=== PATIENT | male | born 1940 | race Caucasian/White ===

== ENCOUNTER 2017-11-22 07:30 | Inpatient (IN) ==
[2017-12-13] MEDS ORDERED: LIDOCAINE W/ SODIUM BICARB 0.5 ML SYR SUBD ONE (06:00)
[2017-12-13] MEDS ORDERED: Lactated Ringers 1,000 ML PRIMARY IV SCH ×2 (06:00→10:45)
[2017-12-13] MEDS ORDERED: ceFAZolin Inj 2gm (Premix) 2 GM/50 ML BAG IV ONE (06:00)
[2017-12-13] MEDS ORDERED: Nasal Sanitizer POPSWAB ampule 3 AMP (Nozin) PREOP DOSE ENOS SCH (06:00)
[2017-12-13] MEDS ORDERED: LIDOCAINE W/ SODIUM BICARB 0.5 ML SYR ONE (06:05)
[2017-12-13] MEDS ORDERED: ceFAZolin Inj 2gm (Premix) 0 GM/0 ML BAG IV ONE (06:05)
[2017-12-13] MEDS ORDERED: Lactated Ringers 1,000 ML PRIMARY IV ONE ×2 (06:05→11:39)
[2017-12-13] MEDS ORDERED: fentaNYL Inj 250 MCG/5 ML VIAL ONE (07:00)
[2017-12-13] MEDS ORDERED: MIDAZOLAM 5 MG/1 ML ONE (07:00)
[2017-12-13] MEDS ORDERED: KETAMINE 100 MG/1 ML - 5 ML ONE (07:00)
[2017-12-13] MEDS ORDERED: BUPivacaine Inj 0.25% PF - 10ml vial ONE (07:02)
[2017-12-13] MEDS ORDERED: PROPOFOL 10 MG/1 ML (200 MG/20 ML) VIAL IV ONE (07:03)
[2017-12-13] MEDS ORDERED: BACITRACIN 50,000 UNIT VIAL IRRIG ONE (07:03)
[2017-12-13] MEDS ORDERED: BUPivacaine Liposome/PF (Exparel) Inj 20ml vial INFIL ONE (07:03)
[2017-12-13] MEDS ORDERED: Sodium Chloride 0.9% vial 40 ML ONE (07:03)
[2017-12-13] MEDS ORDERED: ROCURONIUM 10 MG/1 ML - 5 ML VIAL IVP ONE (07:04)
[2017-12-13] MEDS ORDERED: TRANEXAMIC ACID 1,000 MG / 10 ML VIAL ONE ×2 (07:05→09:25)
[2017-12-13] MEDS ORDERED: LIDOCAINE MPF 2% - 5 ML (20 MG/1 ML) ONE (07:06)
[2017-12-13] MEDS ORDERED: Sodium Chloride 0.9% vial 10 ML ONE ×2 (07:06→08:40)
[2017-12-13] MEDS ORDERED: DEXAMETHASONE PF 10 MG/1 ML VIAL ONE (07:08)
[2017-12-13] MEDS ORDERED: BUPIVACAINE 0.5% W/EPI MPF -30 ML VIAL IV ONE (07:10)
[2017-12-13] MEDS ORDERED: Ropivacaine 0.2% VIAL 20 ML ONE (07:10)
[2017-12-13] MEDS ORDERED: ceFAZolin Inj 3 GM in Sodium Chloride 0.9% 100 ML IV ONE (07:15)
--- NOTE | 2017-12-13 07:48 | CRNA.PROCE ---
Nerve Block Documentation - - Safety Measures: Time Out Taken, Site Verified - - Type of Nerve Block Used: Right Interscalene Block (Analgesia for post Reverse TSA) Position for Nerve Block: Supine Moniters Used During Block: EKG, SPO2, NIBP Oxygen Supplemented: Yes Sedation Used - Enter Amount in Comment Field [ANES.SEDAT]: Midazolam (mg): Yes (2.5), Fentanyl (mcg): Yes (50) Skin Prep Used: ChloroPrep (Twice) Draped: No Technique: Nerve Stimulator Nerve Block Needle Used: [employer] 50 mm Stimulation Hz: 1 Stimulation Staring mA: 1 Stimulation Ending mA: 1.8 Local Anesthetic - Enter Amt in Comment Field [ANES.LOCNB]: 0.5 % Bupivicaine with Epinephrine 1:200,000 (mL): Yes (15 ml), 0.2 % Ropivacaine (mL): Yes (15 ml ) Additives to Nerve Blocks: Dexamethasone (mg): Yes (10) - - PreOp Block : Time In: 07:30 PreOp Block : Time Out: 07:40 Anesthesia Time - Other Weight: 123.604 kg Height: 5 ft 6 in Body Mass Index (BMI): 43.9
--- NOTE | 2017-12-13 07:49 | CRNA.PROGR ---
Anesthesia Recovery Phase I - Post Anesthesia Evaluation Patient's Condition on Arrival in Phase I: Fair Patient's Condition on Arrival in Phase II: Stable Pain Level: 0 (copd and the pain block my biggest concerns post op. some hoarseness. some cough. needs pulmonary toilet. probably cpap or bipap while sleeping.)
--- NOTE | 2017-12-13 07:49 | CRNA.PROGR ---
Post Anesthesia Phase II - Post Anesthesia Phase II Patient Stable and Discharged To: Med/Surg Care Assumed By Surgeon: Fabricio Jaimes MD Temperature: 97.9 F Pulse Rate: 70 Respiratory Rate: 23 Blood Pressure: 143/82 Pulse Ox: 92 Total Nelly Score at Discharge: 9 Post Anesthesia Discharge Criteria Met: Yes
--- NOTE | 2017-12-13 07:49 | CRNA.PROGR ---
Anesthesia Time - Procedure/Recovery Time Start Date: 12/13/17 End Date: 12/13/17 Anesthesia : Time In: 08:04 Anesthesia : Time Out: 12:09 Anesthesia : Total Time: 245 - Block Time PreOp Block : Time In: 07:30 PreOp Block : Time Out: 07:40 - Total Anesthesia Time Total Anesthesia Time (minutes): 245 - Other Weight: 123.604 kg Height: 5 ft 6 in Body Mass Index (BMI): 43.9 Physical Status: P3 (Obesity, HTN, COPD, HEMANT) Anesthesia Type: General Anesthesia : ET
[2017-12-13] MEDS ORDERED: PHENYLEPHRINE 10,000 MCG/1 ML VIAL ONE (08:39)
[2017-12-13] MEDS ORDERED: Hetastarch 6% + NS 500 ML IV ONE (09:11)
[2017-12-13] MEDS ORDERED: fentaNYL Inj 100 MCG/2 ML VIAL IVP PRN (10:34)
[2017-12-13] MEDS ORDERED: LIDOCAINE W/ SODIUM BICARB 0.5 ML SYR SUBD PRN (10:34)
[2017-12-13] MEDS ORDERED: HYDROmorphone 2 MG/1 ML IVP PRN (10:34)
[2017-12-13] MEDS ORDERED: ONDANSETRON 4 MG/2 ML VIAL IVP PRN ×2 (10:34→13:26)
[2017-12-13] MEDS ORDERED: ATROPINE SULFATE 0.4 MG/1 ML VIAL IVP PRN (10:34)
[2017-12-13] MEDS ORDERED: Ondansetron ODT Tab 8 MG TAB PO PRN (10:34)
[2017-12-13] MEDS ORDERED: IPRATROPIUM/ALBUTEROL SULFATE 3 ML NEB NEB PRN (10:35)
--- NOTE | 2017-12-13 12:21 | ORTHO.OP ---
- - -: See Dictated Operative Report
[2017-12-13 12:23] LABS: Hemoglobin [HGB] 14.2 g/dL (14.0-18.0)
[2017-12-13] MEDS ORDERED: LIDOCAINE HCL 2 % 10 ML JELLY URO-JECT TOPICAL PRN (13:26)
[2017-12-13] MEDS ORDERED: KETOROLAC 15 MG/1 ML VIAL IVP PRN (13:26)
[2017-12-13] MEDS ORDERED: MORPHINE SULFATE 2 MG/1 ML IVP PRN (13:26)
[2017-12-13] MEDS ORDERED: Fleet Enema 133ml RECTAL PRN (13:26)
[2017-12-13] MEDS ORDERED: MAGNESIUM 400 MG/5 ML - 30 ML (MILK OF MAGNESIA) PO PRN (13:26)
[2017-12-13] MEDS ORDERED: MAGNESIUM CITRATE 296 ML SOLUTION PO PRN (13:26)
[2017-12-13] MEDS ORDERED: DOCUSATE 100 MG CAPSULE PO PRN (13:26)
[2017-12-13] MEDS ORDERED: BISACODYL 5 MG TABLET PO PRN (13:26)
--- NOTE | 2017-12-13 13:41 | DI ---
XR SHOULDER MIN 2VW 12/13/2017 12:01 PM History: [facility] [place] DI ^PO ^AP and trans scap Y Comparison: None. Findings: AP and scapular Y views of the right shoulder demonstrate postsurgical changes consistent w ith right shoulder hemiarthroplasty. The superior surgical screw projects beyond cortical bone on the scapular Y view. There are degenerative changes of the acromioclavicular joint with inferior spur fo rmation. Patchy opacities in the right lung base are most likely atelectasis in the absence of additi onal clinical findings. The visualized soft tissues are otherwise unremarkable. Impression: Status post right shoulder hemiarthroplasty. Correlate with desired surgical outcome.
[2017-12-13] MEDS ORDERED: MORPHINE SULFATE 4 MG/1 ML IV PRN (13:43)
[2017-12-13] MEDS ORDERED: MORPHINE SULFATE 2 MG/1 ML IV PRN (13:43)
[2017-12-13] MEDS ORDERED: MORPHINE SULFATE 10 MG/1 ML IV PRN (13:43)
--- NOTE | 2017-12-13 13:53 | CONSULT ---
Consult Note - Consult Consult Date: 12/13/17 Reason for Consult: PostOp Consulation : Ortho Requesting Physician: Dr. Jaimes Primary Care Provider: NISHA PUENTES - History of Present Illness History of Present Illness: This is a 77 years old male with medical history significant for history of hypertension, hypothyroidism, hyperlipidemia, sleep apnea and restless leg syndrome also history of right shoulder osteoarthritis with came into the hospital to have reverse total shoulder replacement and was done by Dr. Jaimes today. The hospitalist service were consulted for management of medical issues. Apart from sore throat he is denying other symptoms. No nausea, no shortness of breath and no chest pain. Past Medical History Medical History: 1. Early COPD. 2. Obesity. 3. Hypertension. 4. Sleep apnea, he's not been using his CPAP regularly for 6 months because of his right shoulder pain. 5. Hypothyroidism. 6. History of restless leg syndrome. 7. Osteoarthritis of right shoulder Surgical History: 1. History of knee replacement. 2. History of hemorrhoidectomy. 3. History of carpal tunnel release Family History: Reviewed an Not Pertinent Past Social History: He used to smoke but not anymore, doesn't drink no drugs. Lives in [place] with his . Tobacco Use: Former Smoker In the Past 12 Months, Have Used or Abuse Any of the Following Substance: None Alcohol Use: None Review of Systems - Review of Systems All Systems: Reviewed & No Additional Complaints Except as Stated Medication / Allergies Home Medications: Home Medications 3 Medication Instructions Recorded Confirmed Type Acetaminophen [Tylenol Extra 500 mg PO Q8H PRN PRN 12/07/17 12/07/17 History Strength] Ascorbic Acid [Vitamin C] 1,000 mg PO DAILY 12/07/17 12/07/17 History Aspirin [Aspir 81] 81 mg PO DAILY 12/07/17 12/13/17 History Benazepril HCl [Lotensin] 10 mg PO DAILY 12/07/17 12/07/17 History Cholecalciferol (Vitamin D3) 2,000 unit PO DAILY 12/07/17 12/07/17 History [Vitamin D3] Fiber [Fiber Diet] 2 ea PO DAILY 12/07/17 12/07/17 History Furosemide [Lasix] 80 mg PO DAILY PRN 12/07/17 12/13/17 History Levothyroxine Sodium 188 mcg PO DAILY 12/07/17 12/13/17 History Magnesium Oxide [Magnesium] 400 mg PO DAILY 12/07/17 12/07/17 History Piroxicam 10 mg PO DAILY 12/07/17 12/07/17 History Potassium 198 mg PO BID 12/07/17 12/13/17 History Pravastatin Sodium 40 mg PO DAILY 12/07/17 12/07/17 History Vitamin E 800 unit PO DAILY 12/07/17 12/07/17 History Zinc Gluconate [Zinc] 30 mg PO DAILY 12/07/17 12/07/17 History Fluticasone Nasal [place] 0.05% 1 gm .ROUTE DAILY 12/13/17 12/13/17 History [Flonase Nasal [place] 0.05%] Fluticasone/Salmeterol [Advair 1 INH DAILY 12/13/17 History 250-50 Diskus] Hydrocodone/Acetaminophen 1 - 2 ea PO Q4-6H PRN #60 tab 12/13/17 Rx [Hydrocodon-Acetaminoph 7.5-325] Piroxicam 10 mg PO BID 12/13/17 12/13/17 History Ropinirole HCl 1 mg PO 1200 12/13/17 12/13/17 History Ropinirole HCl [Requip] 1 mg PO QAM 12/13/17 12/13/17 History Ropinirole HCl [Requip] 3 mg PO QHS 12/13/17 12/13/17 History Allergies/Adverse Reactions: Allergies 3 Allergy/AdvReac Type Severity Reaction Status Date / Time adhesive tape Allergy NOT Verified 12/13/17 06:27 APPLICABLE Exam - Vitals Vital Signs: Vital Signs Temperature 97.1 F Pulse Rate 79 Respiratory Rate 20 Blood Pressure 120/93 Pulse Ox 94 Oxygen Flow Rate 4 Oxygen Delivery Method Room Air Height 5 ft 6 in Weight 272 lb 8 oz - General General Appearance: No Acute Distress, Cooperative, Obese - Head Head Exam: Normal Inspection - Eye Eye Exam: POSITIVE: Normal Appearance - ENT ENT Exam: POSITIVE: Normal Exam - Neck Neck Exam: Normal Inspection - Respiratory Respiratory Exam: POSITIVE: Clear to Auscultation - Bilaterally - Cardiovascular Cardiovascular Exam: POSITIVE: RRR - GI/Abdominal GI/Abdominal Exam: POSITIVE: Normal Bowel Sounds, Non Tender, Non Distended, Soft, No Organomegaly - Rectal Rectal Exam: POSITIVE: Deferred - External Exam: POSITIVE: Deferred - Extremities Additional Extremities Exam Details: SCD boots applied. Right shoulder in a brace - Neurological Neurological Exam: POSITIVE: Alert, Oriented x 3, CN II-XII Intact, No Facial Droop Additional Neurological Exam Details: Hoarse voice - Psychiatric Psychiatric Exam: POSITIVE: Normal Affect - Integumentary Integumentary Exam: POSITIVE: Normal Color Results - Labs CBC and BMP: 12/13/17 12:18 Assessment and Plan - Patient Problems (1) Status post shoulder replacement Current Visit: Yes Status: Acute Comment: Management per Dr. Jaimes he wrote for pain medications and PT and OT consult Code(s): Z96.619 - Presence of unspecified artificial shoulder joint (2) Hypertension Current Visit: Yes Status: Acute Comment: He is on Lotensin will see his blood pressure tomorrow and see if we need to hold it or not. Code(s): I10 - Essential (primary) hypertension (3) Hypothyroidism Current Visit: Yes Status: Acute Comment: Same med Code(s): E03.9 - Hypothyroidism, unspecified (4) Hyperlipidemia Current Visit: Yes Status: Acute Comment: Same med Code(s): E78.5 - Hyperlipidemia, unspecified (5) COPD (chronic obstructive pulmonary disease) Current Visit: Yes Status: Acute Comment: Continue Advair Code(s): J44.9 - Chronic obstructive pulmonary disease, unspecified (6) Restless legs syndrome Current Visit: Yes Status: Acute Comment: Continue requip Code(s): G25.81 - Restless legs syndrome
[2017-12-13] MEDS: ceFAZolin Inj 2gm (Premix) 2 GM/50 ML BAG IV SCH (16:41)
[2017-12-13] MEDS: HYDROcodone-APAP 7.5 MG-325 MG TABLET PO PRN ×2 (16:50→20:53)
[2017-12-13] MEDS: FLUTICASONE INH SCH (18:25)
[2017-12-13] MEDS: SALMETEROL INH SCH (18:25)
[2017-12-13] MEDS ORDERED: FLUTICASONE/SALMETEROL 250/50 UD INHALER INH SCH (19:00)
[2017-12-13 20:05] VITALS: RESP 20
[2017-12-13] MEDS: ENOXAPARIN SODIUM 30 MG/0.3 ML SYRINGE SUBCUT SCH (20:52)
[2017-12-13] MEDS: FLUTICASONE 0.05% ENOS SCH (20:52)
[2017-12-13] MEDS ORDERED: ROPINIROLE 3 MG PO SCH (21:00)
[2017-12-13] MEDS ORDERED: Pravastatin Tab 40 MG TAB PO SCH (21:00)
[2017-12-14] MEDS: ceFAZolin Inj 2gm (Premix) 2 GM/50 ML BAG IV SCH (00:15)
[2017-12-14] MEDS: HYDROcodone-APAP 7.5 MG-325 MG TABLET PO PRN ×3 (02:11→11:25)
[2017-12-14 04:39] LABS: Hematocrit [HCT] 36.7 % (42.0-52.0); MEAN CORPUSCULAR HEMOGLOBIN 31.7 PG (27-31); MEAN CORPUSCULAR HGB CONC 32.7 g/dL (33-37); MEAN CORPUSCULAR VOLUME 96.8 FL (80-90); MEAN PLATELET VOLUME 9.7 FL (7.4-12.2); RED BLOOD COUNT 3.79 10^6/uL (4.70-6.10)
[2017-12-14 05:09] LABS: BLOOD UREA NITROGEN 29 mg/dL (7-22); BUN/CREATININE RATIO 26.36 (6-20)
[2017-12-14] MEDS: FLUTICASONE INH SCH (06:40)
[2017-12-14] MEDS: SALMETEROL INH SCH (06:40)
[2017-12-14] MEDS: FLUTICASONE 0.05% ENOS SCH (06:49)
--- NOTE | 2017-12-14 06:53 | CRNA.PROGR ---
Anesthesia Note - Progress Notes Anesthesia Progress Note: Awake,sitting up in bed. Cheerful, alert, no longer hoarse. Urine output still brisk via schultz catheter. Comfortable. States thumb and index finger Right hand still somewhat numb. Denies nausea. Laboratory Results 12/13/17 12/14/17 12/14/17 Range/Units 12: 04:10 04:10 WBC 8.73 (4.8-10.8) 10^3/uL RBC 3.79 L (4.70-6.10) 10^6/uL Hgb 14.2 12.0 L (14.0-18.0) g/dL Hct 43.0 36.7 L (42.0-52.0) % MCV 96.8 H (80-90) FL MCH 31.7 H (27-31) PG MCHC 32.7 L (33-37) g/dL RDW Std Deviation 47.5 (39-50) fL RDW Coeff of [place]leigh 13.8 (11.5-14.5) % Plt Count 290 (140-350) 10*3/uL MPV 9.7 (7.4-12.2) FL Sodium 135 (135-145) meq/L Potassium 4.8 (3.8-5.2) meq/L Chloride 102 (98-112) meq/L Carbon Dioxide 27 (23-33) meq/L Anion Gap 6 (5-20) BUN 29 H (7-22) mg/dL Creatinine 1.1 (0.70-1.50) mg/dL BUN/Creatinine Ratio 26.36 H (6-20) Glucose 156 H (78-110) mg/dL Calculated Osmolality 288.0 (267-292) mOsm/kg Calcium 8.5 L (8.7-10.7) mg/dL Vital Signs - Last Taken Temperature 96.9 F 12/14/17 04:37 Pulse Rate 82 12/14/17 06:47 Respiratory Rate 20 12/14/17 04:37 Blood Pressure 105/70 12/14/17 04:37 Pulse Ox 92 12/14/17 04:37 No apparent anesthetic difficulties.
--- NOTE | 2017-12-14 07:36 | ORTHO.PROG ---
Last Taken Vital Signs: Vital Signs - Last Taken Temperature 96.9 F 12/14/17 04:37 Pulse Rate 82 12/14/17 06:47 Respiratory Rate 20 12/14/17 04:37 Blood Pressure 105/70 12/14/17 04:37 Pulse Ox 92 12/14/17 04:37 Subjective: comfortablr, no CP SOB Objective: Laboratory Results 12/13/17 12/14/17 12/14/17 Range/Units 12:18 04:10 04:10 WBC 8.73 (4.8-10.8) 10^3/uL RBC 3.79 L (4.70-6.10) 10^6/uL Hgb 14.2 12.0 L (14.0-18.0) g/dL Hct 43.0 36.7 L (42.0-52.0) % MCV 96.8 H (80-90) FL MCH 31.7 H (27-31) PG MCHC 32.7 L (33-37) g/dL RDW Std Deviation 47.5 (39-50) fL RDW Coeff of Ashleigh 13.8 (11.5-14.5) % Plt Count 290 (140-350) 10*3/uL MPV 9.7 (7.4-12.2) FL Sodium 135 (135-145) meq/L Potassium 4.8 (3.8-5.2) meq/L Chloride 102 (98-112) meq/L Carbon Dioxide 27 (23-33) meq/L Anion Gap 6 (5-20) BUN 29 H (7-22) mg/dL Creatinine 1.1 (0.70-1.50) mg/dL BUN/Creatinine Ratio 26.36 H (6-20) Glucose 156 H (78-110) mg/dL Calculated Osmolality 288.0 (267-292) mOsm/kg Calcium 8.5 L (8.7-10.7) mg/dL Assessment: doing well DC home Plan: DC Home Stable
[2017-12-14 08:34] VITALS: BP 142/81; TEMP 98.3
[2017-12-14] MEDS ORDERED: CHOLECALCIFEROL 1000 IU TABLET PO SCH (09:00)
[2017-12-14] MEDS ORDERED: BENAZEPRIL 10 MG TABLET PO SCH (09:00)
[2017-12-14] MEDS ORDERED: MAGNESIUM OXIDE 400 MG TABLET PO SCH (09:00)
[2017-12-14] MEDS ORDERED: Ropinirole Tab 1 MG TAB PO SCH ×2 (09:00→12:00)
[2017-12-14] MEDS ORDERED: PIROXICAM 10 MG PO SCH (09:00)
[2017-12-14] MEDS: ENOXAPARIN SODIUM 30 MG/0.3 ML SYRINGE SUBCUT SCH (09:48)
--- NOTE | 2017-12-14 10:08 | DCSUMMARY ---
Hospitalization Summary Admit Date: 12/13/2017 Discharge Date: 12/14/17 Hospital Course: Medical Discharge diagnoses 1. Status post reverse total right shoulder replacement 2. History of hypertension 3. Obesity 4. Hypoxia probably secondary to underlying COPD 5. History of sleep apnea 6. Hypothyroidism 7. Restless leg syndrome Hospital course This is a 77 years old male with medical history significant for history of hypertension, hypothyroidism, hyperlipidemia, sleep apnea and restless leg syndrome also has a history of right shoulder osteoarthritis who came into the hospital to have reverse total shoulder replacement was done by Dr. Jaimes. The hospitalist service was consulted for management of medical issues. His main postoperative complaint was some sore throat after the surgery but otherwise he did not have significant complaint. The next day that seem to subsid. We did notice though that his oxygen saturation on room air was 85-86% we put him on oxygen. He did walk with physical therapy and they cleared him for discharge. He was seen by Dr. Jaimes and he cleared him for discharge. We will discharge him on his usual medication but will prescribe oxygen. He will need follow-up with his PCP post discharge. Laboratory Results 12/13/17 12/14/17 12/14/17 Range/Units 12:18 04:10 04:10 WBC 8.73 (4.8-10.8) 10^3/uL RBC 3.79 L (4.70-6.10) 10^6/uL Hgb 14.2 12.0 L (14.0-18.0) g/dL Hct 43.0 36.7 L (42.0-52.0) % MCV 96.8 H (80-90) FL MCH 31.7 H (27-31) PG MCHC 32.7 L (33-37) g/dL RDW Std Deviation 47.5 (39-50) fL RDW Coeff of [place]leigh 13.8 (11.5-14.5) % Plt Count 290 (140-350) 10*3/uL MPV 9.7 (7.4-12.2) FL Sodium 135 (135-145) meq/L Potassium 4.8 (3.8-5.2) meq/L Chloride 102 (98-112) meq/L Carbon Dioxide 27 (23-33) meq/L Anion Gap 6 (5-20) BUN 29 H (7-22) mg/dL Creatinine 1.1 (0.70-1.50) mg/dL BUN/Creatinine Ratio 26.36 H (6-20) Glucose 156 H (78-110) mg/dL Calculated Osmolality 288.0 (267-292) mOsm/kg Calcium 8.5 L (8.7-10.7) mg/dL Discharge instruction Diet regular Activity as tolerated Medications Current Medication(s) 3 Medication Instructions Recorded Confirmed Type Acetaminophen [Tylenol Extra 500 mg PO Q8H PRN PRN 12/07/17 12/07/17 History Strength] Ascorbic Acid [Vitamin C] 1,000 mg PO DAILY 12/07/17 12/07/17 History Aspirin [Aspir 81] 81 mg PO DAILY 12/07/17 12/13/17 History Benazepril HCl [Lotensin] 10 mg PO DAILY 12/07/17 12/07/17 History Cholecalciferol (Vitamin D3) 2,000 unit PO DAILY 12/07/17 12/07/17 History [Vitamin D3] Fiber [Fiber Diet] 2 ea PO DAILY 12/07/17 12/07/17 History Furosemide [Lasix] 80 mg PO DAILY PRN 12/07/17 12/13/17 History Levothyroxine Sodium 188 mcg PO DAILY 12/07/17 12/13/17 History Magnesium Oxide [Magnesium] 400 mg PO DAILY 12/07/17 12/07/17 History Piroxicam 10 mg PO DAILY 12/07/17 12/07/17 History Potassium 198 mg PO BID 12/07/17 12/13/17 History Pravastatin Sodium 40 mg PO DAILY 12/07/17 12/07/17 History Vitamin E 800 unit PO DAILY 12/07/17 12/07/17 History Zinc Gluconate [Zinc] 30 mg PO DAILY 12/07/17 12/07/17 History Fluticasone Nasal [place] 0.05% 1 gm .ROUTE DAILY 12/13/17 12/13/17 History [Flonase Nasal [place] 0.05%] Fluticasone/Salmeterol [Advair 1 INH DAILY 12/13/17 History 250-50 Diskus] Hydrocodone/Acetaminophen 1 - 2 ea PO Q4-6H PRN #60 tab 12/13/17 Rx [Hydrocodon-Acetaminoph 7.5-325] Piroxicam 10 mg PO BID 12/13/17 12/13/17 History Ropinirole HCl 1 mg PO 1200 12/13/17 12/13/17 History Ropinirole HCl [Requip] 1 mg PO QAM 12/13/17 12/13/17 History Ropinirole HCl [Requip] 3 mg PO QHS 12/13/17 12/13/17 History Follow-up with PCP in 1-2 weeks, follow-up with Dr. Jaimes as scheduled by him Condition at discharge was stable for discharge Exam - Vitals Vital Signs: Vital Signs Temperature 98.3 F Temperature Source Temporal Artery Scan Pulse Rate [Apical] 82 Pulse Rate [Pulse Oximeter] 87 Pulse Rate 70 Respiratory Rate 20 Blood Pressure [Left Arm] 142/81 Blood Pressure 143/82 Pulse Ox 91 Oxygen Flow Rate 3 Oxygen Delivery Method Nasal Cannula Height 5 ft 6 in Weight 280 lb 3.2 oz - General General Appearance: No Acute Distress, Cooperative, Obese - Head Head Exam: Normal Inspection - Eye Eye Exam: POSITIVE: Normal Appearance - ENT ENT Exam: POSITIVE: Normal Exam - Neck Neck Exam: Normal Inspection - Respiratory Respiratory Exam: POSITIVE: Clear to Auscultation - Bilaterally - Cardiovascular Cardiovascular Exam: POSITIVE: RRR - GI/Abdominal GI/Abdominal Exam: POSITIVE: Normal Bowel Sounds, Non Tender, Non Distended, Soft, No Organomegaly - Rectal Rectal Exam: POSITIVE: Deferred - External Exam: POSITIVE: Deferred Exam: POSITIVE: Deferred - Extremities Additional Extremities Exam Details: Right arm in shoulder brace Patient Problems - Patient Problem List (1) Status post shoulder replacement Current Visit: Yes Status: Acute Code(s): Z96.619 - Presence of unspecified artificial shoulder joint Category: Medical (2) Hypertension Current Visit: Yes Status: Acute Code(s): I10 - Essential (primary) hypertension Category: Medical (3) Hypothyroidism Current Visit: Yes Status: Acute Code(s): E03.9 - Hypothyroidism, unspecified Category: Medical (4) Hyperlipidemia Current Visit: Yes Status: Acute Code(s): E78.5 - Hyperlipidemia, unspecified Category: Medical (5) COPD (chronic obstructive pulmonary disease) Current Visit: Yes Status: Acute Code(s): J44.9 - Chronic obstructive pulmonary disease, unspecified Category: Medical (6) Restless legs syndrome Current Visit: Yes Status: Acute Code(s): G25.81 - Restless legs syndrome Category: Medical
[2017-12-14 10:50] VITALS: O2SAT 94
--- NOTE | 2017-12-14 13:11 | OT AM DAY ---
Diagnosis : Right Total Shoulder Arthroplasty Referral Reason: Instruction in Activities of Daily Living/Shoulder Cryo Cuff O: The patient was instructed in activities of daily living including dressing and bathing, as well as shoulder do's and don't. The patient was issued a cryo cuff for the right shoulder and instructed in its proper use and care. P: No further therapy is indicated at this time. The patient will begin outpatient physical therapy. EFRAIN
--- NOTE | 2017-12-14 13:27 | PTI REPORT ---
Thank you for the referral of Tono Gabriel. He was seen on 12/14/17 for an inpatient evaluation status post right reverse total shoulder. SUBJECTIVE: The patient is a 77-year-old male who is one day post op from a reverse total shoulder. The patient did receive OT prior to PT and per doctor's orders, the pillow abduction brace was removed to make his shoulder brace strictly into a sling. The patient states he is feeling fair this morning. He is having some pain in the right shoulder, but he has not been up since his surgery yesterday. He is looking forward to getting up and walking and being able to go back home to [place]. The patient lives in [place] with his . He states that they have three stairs into their home with a railing on both the right and left hand sides and one step within the house. The patient states that if they go in the back way they do have four stairs into the house with a left hand rail. The patient states that prior to his surgery he was not using any assistive device. The patient states that he did have both knees replaced approximately two years ago. PAST MEDICAL HISTORY: Past medical history can be found in the patient's medical record. OBJECTIVE FINDINGS: General observations: The patient was sitting edge of bed on three liters of oxygen upon the therapist's arrival. The patient was alert and oriented to setting. Transfers: The patient was able to transfer from bed to stand with stand by assist x1 for safety. With first initial standing balance, the patient demonstrated poor balance and did require contact guard assist x1 and hand hold assist x1 in order to maintain his balance as he stated that his legs felt shaky. The patient was able to step up onto the scale with hand hold assist x1 and back down but then required a rest break after the activity due to feeling unsteady on his feet. Ambulation: After the patient was able to get his bearings, he did ambulate x50 feet with hand hold assist x1 for safety. The patient was a little unsteady on his feet but not as bad as the first time that he was up. He did appear short of breath. We did sit the patient down after 50 feet of ambulating and checked his oxygen saturation. On room air he was fluctuating between 85-86% and did require a two minute rest break in order to get his oxygen saturation back up to 90-91%. After a four minute seated rest break, the patient ascended and descended five steps with a railing on the left. He was able to do so safely with stand by assist x1. After the activity the patient sat back down. His oxygen saturation was at 84% and it did take a two minute recovery period. Following that activity, the patient ambulated back to the room x50 feet. The patient was able to perform activity with just contact guard assist x1 for safety and improved balance with decreased complaints of his legs feeling shaky or unsteady and having to reach for any sharp to hold onto. Once in his room, his oxygen was at 85-86%. He did require another two minute recovery break. The patient was placed back on three liters of oxygen and nursing staff was notified of his decreases in oxygen with activity or exertion. ASSESSMENT: From a mobility standpoint, the patient is doing well. We just need to ensure that he is safe to return back home. Short-Term Goals: To be met by discharge from inpatient: Patient will be able to transfer from bed to stand safely and independently. Patient will be able to ambulate at least 100 feet safely without assistive device. Patient will be able to ascend and descend 5 stairs safely and independently with a railing on the left. Long-Term Goals: To be met following discharge from inpatient: Patient may be seen by outpatient physical therapy for his reverse total shoulder. TREATMENT PLAN: Patient will be discharged from therapy due to meeting mobility goals and being safe to return home. The therapist did discuss with nursing staff concerns about his oxygen with exertion. INITIAL TREATMENT: Treatment today consisted of the initial evaluation and one unit of functional activity. Please see objective findings. Following treatment the patient was left in room sitting edge of bed with alarm set and call light within reach. [facility] HOSPITALMichelle
--- NOTE | 2017-12-14 16:34 | OT PM DAY ---
Diagnosis : Right TSA PM - Occupational Therapy S: The patient and the staff were really worried about the patient's brace. O: The therapist had to spend approximately 14 minutes adjusting the patient 's brace out of surgery. His brace was not fitting him appropriately and needed to be re-fit in order for the patient to be able to follow shoulder precautions with the brace. A: The patient is going to be admitted upstairs. We will continue with shoulder do's and don'ts at a later time. P: Continue seeing patient BID during the week and one time per day over the weekend until discharge. EFRAIN
== END 2017-12-14 12:40 | disposition home or self-care (01) | DRG 483 ==
LOC: OPS 12-13 05:42 → MED/SURG 12-13 12:03
PROVIDERS: ADMIT Orthopaedic Surgery; ATTEND Orthopaedic Surgery